=== PATIENT | male | born 1935 | race Caucasian/White ===

== ENCOUNTER 2023-01-25 16:15 | Emergency (ER) | payer MEDICARE, OTHER, SELFPAY ==
--- NOTE | ~2023-01-25 | XR_ITS ---
XR hip BI 2V w AP pelvis 01/25/2023 19:34 Indication: Pelvic pain after fall Procedure: AP pelvis and 2 views each hip Comparison: No prior studies for comparison. Findings: There is advanced lower lumbar spondylosis. Pelvic rings are intact. 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 There are age-indeterminate fractures of the right superior and inferior pub ic ramus. No femoral fracture is seen. Impression: 1: Age-indeterminate fractures right inferior and superior pubic rami. Reviewed, dictated and finalized at location A. Impression: 1: Age-indeterminate fractures right inferior and superior pubic rami.
--- NOTE | ~2023-01-25 | CT_ITS ---
EXAMINATION: CT cervical spine wo con DATE: 01/25/2023 17:53 INDICATION: Neck pain after fall TECHNIQUE: Computed tomography (CT) of the cervical spine was performed without intravenous contrast. The dose-length product was 393 mGy-cm. COMPARISON: None FINDINGS: There is apical pleural thickening/scarring. No significant paraspinal soft tissue abnormal ity. There is straightening of cervical lordosis. There is fusion at C6-7. There is disc narrowing wi th degenerative changes at C3-4 through the visualized upper thoracic spine. There is degenerative an terolisthesis at C4-5. No evidence for perched facet. Craniovertebral junction is normal. Odontoid pr ocess is normal. There is multilevel uncinate and facet hypertrophy. IMPRESSION: 1. No acute abnormality of the cervical spine. 2: Severe cervical spondylosis. Reviewed, dictated and finalized at location A.
--- NOTE | ~2023-01-25 | CT_ITS ---
EXAMINATION: CT brain wo con DATE: 01/25/2023 17:53 INDICATION: Decreased global level of function TECHNIQUE: Computed tomography (CT) of the head was performed without intravenous contrast. The dose- length product was 681.00 mGy-cm. Automated exposure control and iterative reconstruction technique w ere employed. COMPARISON: None FINDINGS: Generalized atrophy. Chronic right cerebellar infarctions. There are scattered mild periven tricular and subcortical white matter changes, most likely related to small vessel ischemic disease ( microangiopathy). There is intracranial atherosclerosis. Paranasal sinuses and mastoids are pneumatiz ed. No depressed skull fractures. No acute infarction, hemorrhage, mass or mass effect IMPRESSION: 1. No acute intracranial abnormality. Reviewed, dictated and finalized at location A.
[2023-01-25 16:15] VITALS: BP 136/43; PULSE 94; RESP 18; TEMP 36.6; O2SAT 96
--- NOTE | 2023-01-25 19:07 | ED.FALL ---
HPI - Fall General Chief Complaint: Fall Stated Complaint: fall/ head injury Time Seen by Provider: 01/25/23 17:59 Source: patient and RN notes reviewed Mode of arrival: EMS Limitations: dementia History of Present Illness HPI Narrative: This is an 87 year old male with history of dementia who presents for evaluation of ground level fall. Patient tripped over curb and he hit his head. He has abrasion to left forehead. He denies any complaints. She denies headache, nausea or vomiting. He denies dizziness. He denies any other injuries. EMS report note states patient with hip pain. PAtient denies hip pain. Review of Systems Review of Systems: ROS unobtainable: Yes unobtainable due to medical condition (dementia) PMFSH Past Medical History Medical History Dementia Diabetes mellitus Hypertension Surgical History Surgical History (Updated 01/28/23 @ 07:52 by Melonie Escobar MD) Surgical history unknown Social History Social History (Updated 01/28/23 @ 07:52 by Melonie Escobar MD) Social History: unknown Exam Const: General: no acute distress and alert Nutritional Appearance: well nourished Other: oriented to person and place HENMT: Ears: external ears normal Face/Nose/Sinus: Normal external nose present Mouth: Yes Normal oral and palatal mucosa present, Yes lip normal and Yes moist mucous membranes Throat: posterior oropharynx normal and uvula midline Other: abrasion to left forehead Eyes: Conjunctivae: conjunctivae normal Pupils: Equal, round and reactive pupils present EOM: EOMs intact bilaterally Neck: Neck: normal visual inspection Chest: Chest palpation & inspection: normal inspection of the chest Resp: Effort & Inspection: normal respiratory effort Auscultation: clear to auscultation bilaterally Cardio: Rate: regular rate Rhythm: regular rhythm Heart sounds: no murmurs GI: GI Palp: Yes Soft to palpation, No Tenderness to palpation present (GI) and No Guarding due to palpation present (GI) Skin: Wounds: wounds noted (abrasion to left forehead) Neuro: General: moves all extremities and CN's II-XI intact bilaterally Speech: normal speech Other: patient walks with limp, denies pain Extrem: Other: no deformity, full ROM Psych: Mental Status: mental status grossly normal Affect: normal affect Attitude: cooperative Course Reevaluation(s) Reevaluation #1: PAtient's son at bedside. I Discussed no acute injury. He understand patient will be discharged home. Date: 01/25/23 Time: 19:30 Vital Signs Vital signs: Vital Signs Temperature 97.8 F 01/25/23 16:15 Pulse Rate 94 01/25/23 16:15 Respiratory Rate 18 01/25/23 16:15 Blood Pressure 136/43 L 01/25/23 16:15 Pulse Oximetry 96 01/25/23 16:15 Oxygen Delivery Room Air 01/25/23 16:15 Temperature 98.2 F 01/25/23 21:39 Pulse Rate 78 01/25/23 21:39 Respiratory Rate 19 01/25/23 21:39 Blood Pressure 132/78 01/25/23 21:39 Pulse Oximetry 99 01/25/23 21:39 Oxygen Delivery Room Air 01/25/23 16:15 MDM - Fall Imaging Data Radiologist's impression: ITS Impressions Head CT 01/25/23 17:55 IMPRESSION: 1. No acute intracranial abnormality. Cervical Spine CT 01/25/23 17:59 IMPRESSION: 1. No acute abnormality of the cervical spine. 2: Severe cervical spondylosis. Hip/Pelvis X-Ray 01/25/23 19:35 Impression: 1: Age-indeterminate fractures right inferior and superior pubic rami. Discharge Plan Discharge Clinical Impression: CHI (closed head injury), Abrasion of forehead Patient Disposition: [facility] Living Condition: Stable Instructions: Antibiotic Form, Head Injury (ED), Abrasion (ED) Follow-up/Referrals: PHYSICIAN NOT ON STAFF,NONSTAFF [Primary Care Provider] -
--- NOTE | 2023-01-25 19:58 | PC.NURSE ---
attempted to call devan at [facility] without answer.
--- NOTE | 2023-01-25 20:26 | PC.NURSE ---
no answer for report at [facility] at this time.
[2023-01-25 21:39] VITALS: BP 132/78; PULSE 78; RESP 19; TEMP 36.8; O2SAT 99
== END 2023-01-25 21:55 ==
PROVIDERS: Emergency Provider General Practice
DX: S00.81XA Abrasion of other part of head, initial encounter (principal); F03.90 Unspecified dementia, unspecified severity, without behavioral disturbance, psychotic disturbance, mood disturbance, and anxiety; E11.9 Type 2 diabetes mellitus without complications; I10 Essential (primary) hypertension; M47.812 Spondylosis without myelopathy or radiculopathy, cervical region; R93.7 Abnormal findings on diagnostic imaging of other parts of musculoskeletal system; W10.1XXA Fall (on)(from) sidewalk curb, initial encounter
CPT/HCPCS: 70450; 72125; 73521; 99284

== ENCOUNTER 2023-02-07 23:38 | Emergency (ER) | payer MEDICARE, OTHER, SELFPAY ==
--- NOTE | ~2023-02-07 | XR_ITS ---
EXAMINATION: XR chest 2V DATE: 02/08/2023 01:19 INDICATION: Cough. TECHNIQUE: Frontal and lateral views of the chest were obtained. COMPARISON: None. FINDINGS: There is mild scarring at the lung apices. There are airspace opacities in the lower lung z ones. There is a small left pleural effusion. No pneumothorax. The heart size is normal. IMPRESSION: 1. Airspace opacities in the lower lung zones, consistent with atelectasis versus pneumonia. 2. Small left pleural effusion. 3. Mild scarring at the lung apices. Reviewed, dictated and finalized at location E. IMPRESSION: 1. Airspace opacities in the lower lung zones, consistent with atelectasis vers us pneumonia. 2. Small left pleural effusion. 3. Mild scarring at the lung apices.
--- NOTE | ~2023-02-07 | CT_ITS ---
EXAMINATION: CT brain wo con DATE: 02/08/2023 01:12 INDICATION: Intermittent aggressive behavior. TECHNIQUE: Computed tomography (CT) of the head was performed without intravenous contrast. The mA wa s adjusted according to patient size. Iterative reconstruction technique was employed. The dose-lengt h product was 605.33 mGy-cm. COMPARISON: Head CT 01/25/2023 FINDINGS: There is a small old infarct in right cerebellum. There is diffuse brain volume loss. There are scattered areas of low attenuation in the cerebral white matter, which is within normal limits f or the patient's age. The ventricles are normal in size. The orbits are normal. There is mild mucosal thickening in the paranasal sinuses. The mastoid air cells are normal. IMPRESSION: 1. Small old infarct in right cerebellum. Reviewed, dictated and finalized at location E.
[2023-02-07 23:42] VITALS: BP 139/65; PULSE 74; RESP 19; TEMP 37; O2SAT 99
--- NOTE | 2023-02-08 00:53 | ED.GENADULT ---
HPI - General Adult General Chief complaint: Unspecified Stated complaint: increased confusion and aggression at nh Time Seen by Provider: 02/08/23 00:13 Source: patient and family (Daughter who is DPOA) Limitations: dementia History of Present Illness HPI narrative: Patient is an elderly gentleman presenting to the emergency department, accompanied by his daughter, who is his durable power of trust and estates attorney, and is coming from a memory care facility for aggressive behavior. Staff reported that the patient has had approximately 3 to 4 angry outbursts over the past week which prompted the facility states that to send him in for further evaluation. Daughter knows that a patient has a history of this in the past approximately six months ago, and he was started on the medication of sertraline, which seem to help and has been taking this medication as prescribed. Daughter notes at the patient is currently at his baseline mental status. Patient denies any recent injuries or any current complaints. Patient states that he feels well and denies any current complaints. Patient denies any shortness of breath, chest pain, abdominal pain, dysuria, urinary frequency, urinary urgency, rash, numbness, weakness, headache, confusion, sore throat, difficulty, swallowing, vision changes, Nausea, vomiting, diarrhea, constipation, melena. Patient does not recall being angry with staff members. Patient does admit to a slight nonproductive cough which he is unsure as to how long that?s been going on. Related Data Allergies Allergy/AdvReac Type Severity Reaction Status Date / Time No Known Allergies Allergy Verified 02/08/23 01:35 Review of Systems Review of Systems: A 10 system review of systems was completed on the patient and is negative except for what is stated in the HPI. Nursing and ancillary documentation was reviewed. [facility] Past Medical History Medical History (Updated 02/09/23 @ 00:00 by Jacoby Beaver) Dementia Diabetes mellitus Hypertension Surgical History Surgical History (Updated 01/28/23 @ 07:52 by Melonie Escobar MD) Surgical history unknown Social History Social History (Updated 01/28/23 @ 07:52 by Melonie Escobar MD) Social History: unknown Comments At time of signature, I have reviewed and agree with nursing past medical, surgical, social and family history unless otherwise noted. Please see the nursing chart for further information. There is no relevant family history pertinent to the presenting complaint. Exam Narrative: CONST: No acute distress. Well nourished. HENMT: Head is normocephalic and atraumatic. Tacky mucous membranes. No posterior oropharynx erythema. EYES: No conjunctival icterus, injection, or pallor. PERRL. No nystagmus. NECK: No meningeal signs. No palpable cervical lymphadenopathy. No palpable thyromegaly. No JVD. RESP: Able to speak in full sentences. Normal respiratory effort. CTAB. CARDIO: Regular rate. Regular rhythm. 2+ DP and radial pulses bilaterally. GI: Nondistended. No tenderness to palpation. Soft. : No CVA tenderness to palpation. SKIN: No rashes or lesions noted on exposed skin. NEURO: Oriented x2. Moves all extremities. No pronator drift of the bilateral upper extremities. No dysmetria of [id number] testing bilaterally. Extraocular motions intact. Sensation intact to light touch throughout all 4 extremities. No facial asymmetry. Speech is clear and fluent. Following commands appropriately. EXTREM: Trace bilateral lower extremity pitting edema. No tenderness to palpation of the extremities over the calf muscles. PSYCH: Normal affect. Cooperative. Course Vital Signs Vital signs: Vital Signs Temperature 98.6 F 02/07/23 23:42 Pulse Rate 74 02/07/23 23:42 Respiratory Rate 19 02/07/23 23:42 Blood Pressure 139/65 02/07/23 23:42 Pulse Oximetry 99 02/07/23 23:42 Oxygen Delivery Room Air 02/07/23 23:42 Temperature 98.6 F 02/07/23
--- NOTE | 2023-02-08 00:54 | ECG_ITS ---
Measurements Intervals [place] Rate: 64 P: 61 TN: 179 QRS: 0 QRSD: 108 T: 52 QT: 392 QTc: 406 Interpretive Statements SINUS RHYTHM INCOMPLETE RIGHT BUNDLE BRANCH BLOCK [90+ ms QRS DURATION, TERMINAL R IN V1/V2, 40+ ms S IN I/aVL/V4/V5/V6] NO PREVIOUS ECG AVAILABLE FOR COMPARISON Electronically Signed On 02-08-2023 12:56:27 CDT by Najma Claudio M.D.
[2023-02-08] MEDS: SODIUM CHLORIDE 0.9% IV 500 ML 999 ML IV CONT (01:36)
[2023-02-08 01:43] LABS: Basophils Percent Auto 0.5 % (0.2-1.2); Eosinophils Absolute Auto 0.1 K/mm3 (0-0.3); Eosinophils Percent Auto 0.9 % (0-4.4); Hematocrit 31.8 % (42.0-52.0); Hemoglobin 10.3 g/dL (14.0-18.0); Immature Granulocyte Absolute 0.04 K/mm3 (0.00-0.031); Immature Granulocyte Percent A 0.5 % (0-0.5); Mean Corpuscular HGB Conc 32.4 g/dl (32-36); Mean Corpuscular Hemoglobin 30.1 pg (26-34); Mean Platelet Volume 8.8 fl (7.4-10.4); Monocytes Absolute Auto 1.1 K/mm3 (0.1-0.6); Monocytes Percent Auto 13.5 % (2.6-8.5); Neutrophils Absolute Auto 5.5 K/mm3 (1.3-6.7); Neutrophils Percent Auto 70.6 % (45.5-73.1); Platelet Count Result 252 k/mm3 (150-375); Red Blood Count 3.42 M/mm3 (4.6-6.20); Red Cell Distribution Width 13.2 % (11.5-14.5); White Blood Count 7.9 K/mm3 (4.5-10.0)
[2023-02-08 01:54] LABS: Ammonia < 9 umol/L (9-30); Ethanol < 10 mg/dL (<10)
[2023-02-08 02:00] LABS: Appearance Urine Cloudy (Clear); Bacteria Urine None Seen /hpf; Bilirubin Urine Negative (Negative); Blood Urine Negative (Negative); Calcium Oxalate Crystals Urine Present /hpf; Color Urine Dark Yellow (Yellow); Glucose Urine UA Negative (Negative); Ketones Urine Trace mg/dL (Negative); Leukocyte Esterase Ur Negative LEU/UL (Negative); Nitrate Urine Negative (Negative); Non Pathogenic Casts 0-2; Protein Urine 1+ mg/dL (Negative); Squamous Epithelial Cell Urine None seen /hpf (Few); WBC Urine 0-5 /hpf; pH Urine 5.5 (5.0-9.0)
[2023-02-08 02:02] LABS: Add Urine Microscopic? YES
[2023-02-08 02:06] LABS: Acetaminophen < 10 ug/mL (10-30)
[2023-02-08 02:11] LABS: Alanine Aminotransferase 20 U/L (6-50); Albumin Level 3.4 g/dL (3.5-5.1); Alkaline Phosphatase 155 U/L (38-126); Anion Gap 4 mmol/L (8-16); Aspartate Amino Transferase 30 U/L (17-59); Bilirubin,Total 0.5 mg/dL (0.2-1.3); Blood Urea Nitrogen 21 mg/dL (9-20); Calcium 8.5 mg/dL (8.4-10.2); Carbon Dioxide 30 mmol/L (22-30); Chloride 103 mmol/L (98-107); Estimated CRCL calculation 47 ml/min; Estimated Glomerular Filt Rate > 60; Glucose 130 mg/dL (65-110); Lipase 315 U/L (23-300); Magnesium 2.1 mg/dL (1.6-2.3); Potassium 3.4 mmol/L (3.4-5.0); Sodium 137 mmol/L (137-145)
[2023-02-08 02:12] LABS: Influenza A QL RT-PCR Negative (Negative); Influenza B QL RT-PCR Negative (Negative); SARS-CoV-2 RNA PCR Negative (Negative)
[2023-02-08 02:22] LABS: NT Pro B Type Natriuretic Pept 337 pg/mL (19.9-100); Troponin I < 0.012 ng/mL (0.000-0.034)
[2023-02-08 02:28] LABS: INR 1.2; Prothrombin Time 15.2 Seconds (11.1-14.7)
[2023-02-08 02:29] LABS: Partial Thromboplastin Time 33.8 SECONDS (22.3-36.8)
[2023-02-08 02:36] LABS: D Dimer 2.04 ug/mL (<0.48)
[2023-02-08 02:57] VITALS: BP 141/64; PULSE 68; RESP 20; O2SAT 96
== END 2023-02-08 03:48 ==
PROVIDERS: Emergency Provider Student in an Organized Health Care Education/Training Program
DX: F03.90 Unspecified dementia, unspecified severity, without behavioral disturbance, psychotic disturbance, mood disturbance, and anxiety (principal); R05.9 Cough, unspecified; Z20.822 Contact with and (suspected) exposure to COVID-19; E11.9 Type 2 diabetes mellitus without complications; I10 Essential (primary) hypertension; Z79.899 Other long term (current) drug therapy; R91.8 Other nonspecific abnormal finding of lung field; I45.10 Unspecified right bundle-branch block
CPT/HCPCS: 36415; 70450; 71046; 80053; 80307; 81001; 82140; 83690; 83735; 83880; 84443; 84484; 85025; 85380; 85610; 85730; 87636; 93005; 96360; 99284; J7040